=== PATIENT | female | born 1980 | race African-American/Black ===

== ENCOUNTER 2017-02-25 14:17 | Emergency (ER) | payer SELFPAY ==
[~2017-02-25] VITALS: Ht 177.8 cm; Wt 53.0 kg
[2017-02-25 14:19] VITALS: BP 138/83; PULSE 86; RESP 15; TEMP 98.2; O2SAT 99
--- NOTE | 2017-02-25 14:29 | PD ---
Physical Exam Time Seen by Provider: 14:27 Narrative 36 y/o female here with a mildly pruritic rash for 1-2 weeks. She works at a [employer] and is concerned that she has scabies. Vital signs reviewed. Seen at triage desk. Awaiting bed placement. Data Data Last Documented VS Vital Signs Date Time Temp Pulse Resp B/P Pulse Ox O2 Delivery O2 Flow Rate FiO2 02/25/17 14:19 98.2 86 15 138/83 99 MDM Medical Record Reviewed: Yes Supervised Visit with JEANNETTE: No Scripts No Active Prescriptions or Reported Meds Mirza Rodrigues Feb 25, 2017 14:29
[2017-02-25] MEDS ORDERED: PERM5CRE11 TOPICAL (15:49)
--- NOTE | 2017-02-25 15:50 | PD ---
HPI Chief Complaint: Skin Problem Time Seen by Provider: 15:37 Travel History International Travel<30 days: No Contact w/Intl Traveler<30days: No Traveled to known affect area: No History of Present Illness HPI The patient is a 36-year-old Mary Carmen female who presents emergency department after a scabies exposure at a [employer]. The patient states she was exposed the patient has scabies, then developed a rash which is located in the flanks bilaterally. The patient states she was at 3 or 4 small bump several in a row, linear fashion, that were pruritic. These areas have moved around on the flanks bilaterally, she is concerned she has scabies. She denies any involvement of the hands or feet, denies any vomiting of the arms or legs. She does note the rash is somewhat pruritic, denies any vesicular regions. She does have a history scabies with similar symptoms per her report. PFSH Past Medical History Medical History: Denies Significant Hx Tetanus Vaccination: < 5 Years ?: Not LMP: 02/14/17 Past Surgical History Surgical History: No Previous Surgery Social History Alcohol Use: No Tobacco Use: No Substance Use: No Allergies-Medications (Allergen,Severity, Reaction): Uncoded Allergies: CABERGOLINE (Allergy, Severe, Rash, 07/14/15) Reported Meds & Prescriptions Reported Meds & Active Scripts Active Elimite Topical (Permethrin) 5% Cream 1 Applic TOPICAL ONCE Review of Systems General / Constitutional: No: Fever Musculoskeletal: No: Myalgias, Arthralgias Skin: Positive Rash, Positive Itching Hematologic/Lymphatic: No: Easy Bruising Physical Exam Narrative GENERAL: Awake, alert, pleasant 36-year-old female who appears her stated age and is in no acute respiratory distress. SKIN: Focused skin assessment warm/dry. Patient has a few circular lesions on the flanks bilaterally, 2 of them are in a linear fashion, but there are no obvious burrows. Inspection of the hands and feet reveals no burrows. No visible rash to the palms or soles. HEAD: Atraumatic. Normocephalic. EYES: Pupils equal and round. No scleral icterus. No injection or drainage. ENT: No nasal bleeding or discharge. Mucous membranes pink and moist. NECK: Trachea midline. No JVD. MUSCULOSKELETAL: No obvious deformities. No clubbing. No cyanosis. No edema. NEUROLOGICAL: Awake and alert. No obvious cranial nerve deficits. Motor grossly within normal limits. Normal speech. PSYCHIATRIC: Appropriate mood and affect; insight and judgment normal. Data Data Last Documented VS Vital Signs Date Time Temp Pulse Resp B/P Pulse Ox O2 Delivery O2 Flow Rate FiO2 02/25/17 14:19 98.2 86 15 138/83 99 MDM Medical Decision Making Medical Screen Exam Complete: Yes Emergency Medical Condition: Yes Medical Record Reviewed: Yes Differential Diagnosis Differential diagnosis includes scabies, bedbugs, dermatitis, contact dermatitis , shingles. Narrative Course The patient's description of her rash is consistent with scabies versus bed bugs , however, she is concerned about scabies that she had a recent exposure. Therefore, the patient will be treated with Elimite. 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 Diagnosis Primary Impression: Scabies exposure Patient Instructions: General Instructions Additional Instructions: Medications as directed. Follow-up with her primary physician. Elimite for one day. Return to work on after treatment with Elimite. Med/Other Pt SpecificInfo: Prescription(s) given Scripts Permethrin Topical (Elimite Topical)5% Cream1 Applic TOPICAL ONCE #1 TUBE Ref 0 Prov:Elver Starr MD 02/25/17 Disposition: 01 DISCHARGE HOME Condition: Stable Elver Starr MD Feb 25, 2017 15:50
== END 2017-02-25 16:18 | disposition home or self-care (01) ==
LOC: NEPD 14:17
DX: R21 Rash and other nonspecific skin eruption (principal); Z20.7 Contact with and (suspected) exposure to pediculosis, acariasis and other infestations
CPT/HCPCS: 99283

== ENCOUNTER 2017-03-09 09:31 | Emergency (ER) | payer SELFPAY ==
[~2017-03-09] VITALS: Ht 152.4 cm; Wt 51.5 kg
[~2017-03-09 09:31] MED LIST: PERM5CRE11 TOPICAL
[2017-03-09 09:33] VITALS: BP 118/69; PULSE 67; RESP 15; TEMP 98.2; O2SAT 98
[2017-03-09 09:47] VITALS: BP 116/73; PULSE 84; RESP 16; O2SAT 100
[2017-03-09] MEDS ORDERED: METR-1 PO (09:50)
--- NOTE | 2017-03-09 10:12 | PD ---
HPI Chief Complaint: Syncope/Near-Syncope Time Seen by Provider: 09:57 Travel History International Travel<30 days: No Contact w/Intl Traveler<30days: No Traveled to known affect area: No History of Present Illness HPI The patient was seen and examined in the presence of the nurse. This patient complains of feeling lightheaded. He woke up at [address] Duration 6 hours. She feels improved at this point. Resolution was spontaneous with no alleviating factors. Severity was moderate quality occurred. No syncope or headache or chest pain. She denies vertigo. At this point she is not feeling lightheaded. PFSH Past Medical History Medical other: Yes (CHRONIC LOW BACK PAIN) Influenza Vaccination: No ?: Not LMP: 02/23/2017 Past Surgical History Surgical History: No Previous Surgery Social History Alcohol Use: No Tobacco Use: No Substance Use: No Allergies-Medications (Allergen,Severity, Reaction): Uncoded Allergies: CABERGOLINE (Allergy, Severe, Rash, 07/14/15) Reported Meds & Prescriptions Reported Meds & Active Scripts Active Reported Flagyl (Metronidazole) 500 Mg Tab 500 Mg PO BID Review of Systems General / Constitutional: No: Fever Eyes: No: Visual changes HENT: Positive: Lightheadedness, No: Headaches Cardiovascular: No: Chest Pain or Discomfort Respiratory: No: Shortness of Breath Gastrointestinal: No: Abdominal Pain Genitourinary: No: Dysuria Musculoskeletal: No: Pain Skin: No Rash Neurologic: Positive: Dizziness, No: Weakness Psychiatric: No: Depression Endocrine: No: Polydipsia Hematologic/Lymphatic: No: Easy Bruising Physical Exam Narrative GENERAL: Thin well-developed patient in no apparent distress. SKIN: Focused skin assessment reveals no rash and nodules. Skin is Warm and dry. HEAD: Atraumatic. Normocephalic. EYES: Pupils equal and round. No scleral icterus. No injection or drainage. ENT: No nasal bleeding or discharge. Mucous membranes pink and moist. NECK: Trachea midline. No JVD. CARDIOVASCULAR: Regular rate and rhythm. No murmur appreciated. RESPIRATORY: No accessory muscle use. Clear to auscultation. Breath sounds equal bilaterally. GASTROINTESTINAL: Abdomen soft, non-tender, nondistended. Hepatic and splenic margins not palpable. MUSCULOSKELETAL: No obvious deformities. No clubbing. No cyanosis. No edema. NEUROLOGICAL: Awake and alert. No obvious cranial nerve deficits. Motor grossly within normal limits. Normal speech. PSYCHIATRIC: Appropriate mood and affect; insight and judgment normal. 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 [employer] / Telemetry [email or web address] (03/09/17 10:09) Labs Laboratory Tests Test 03/09/17 10:14 White Blood Count 10.0 TH/MM3 Red Blood Count 4.40 MIL/MM3 Hemoglobin 12.6 GM/DL Hematocrit 37.7 % Mean Corpuscular Volume 85.5 FL Mean Corpuscular Hemoglobin 28.6 PG Mean Corpuscular Hemoglobin 33.4 % Concent Red Cell Distribution Width 12.6 % Platelet Count 211 TH/MM3 Mean Platelet Volume 9.4 FL Neutrophils (%) (Auto) 69.1 % Lymphocytes (%) (Auto) 23.6 % Monocytes (%) (Auto) 5.7 % Eosinophils (%) (Auto) 1.4 % Basophils (%) (Auto) 0.2 % Neutrophils # (Auto) 6.9 TH/MM3 Lymphocytes # (Auto) 2.4 TH/MM3 Monocytes # (Auto) 0.6 TH/MM3 Eosinophils # (Auto) 0.1 TH/MM3 Basophils # (Auto) 0.0 TH/MM3 CBC Comment DIFF FINAL Differential Comment Sodium Level 139 MEQ/L Potassium Level 4.4 MEQ/L Chloride Level 104 MEQ/L Carbon Dioxide Level 27.3 MEQ/L Anion Gap 8 MEQ/L Blood Urea Nitrogen 10 MG/DL Creatinine 0.74 MG/DL Estimat Glomerular Filtration 106 ML/MIN Rate Random Glucose 89 MG/DL Calcium Level 9.2 MG/DL MDM Medical Decision Making Medical Screen Exam Complete: Yes Emergency Medical Condition: Yes Medical Record Reviewed: Yes Differential Diagnosis Vertigo, symptomatic anemia, dehydration, ectopic Narrative Course I have reviewed the patient's electronic medical record. Patient was seen here earlier this month with concern of scabies IV placed CBC is normal Metabolic profile is normal Urine is negative I reviewed her EKG which shows sinus rhythm without ectopy Extended cardiac monitoring shows sinus rhythm without ectopy Patient is neurologically intact without objective findings. Vital signs are normal On recheck the patient is doing well. I observed her for almost 3 hours and she is stable without complaint Recommend primary care follow-up Diagnosis Primary Impression: Lightheadedness Additional Impression: Pre-syncope Additional Instructions: The patient was advised to follow up with their physician and return if they worsen. Med/Other Pt SpecificInfo: Other Disposition: 01 DISCHARGE HOME Condition: Stable Ortega Toth MD Mar 09, 2017 10:12
[2017-03-09 10:21] LABS: AUTOMATED NEUTROPHIL # 6.9 TH/MM3 (1.8-7.7); BASOPHIL % 0.2 % (0.0-2.0); EOSINOPHIL # 0.1 TH/MM3 (0-0.4); EOSINOPHIL % 1.4 % (0.0-4.0); HEMATOCRIT 37.7 % (35.0-46.0); HEMO FLAGS DIFF FINAL; LYMPH % 23.6 % (9.0-44.0); LYMPHOCYTE # 2.4 TH/MM3 (1.0-4.8); MEAN CELL VOLUME 85.5 FL (80.0-100.0); MEAN CORPUSCULAR HEMOGLOBIN 28.6 PG (27.0-34.0); MEAN CORPUSCULAR HGB CONC 33.4 % (32.0-36.0); MONO % 5.7 % (0.0-8.0); NEUT % 69.1 % (16.0-70.0); PLATELET COUNT 211 TH/MM3 (150-450); RED CELL DISTRIBUTION WIDTH 12.6 % (11.6-17.2)
[2017-03-09 10:37] LABS: BICARBONATE 27.3 MEQ/L (21.0-32.0); POTASSIUM 4.4 MEQ/L (3.5-5.1)
--- NOTE | 2017-03-09 18:56 | EKG ---
Date Performed: 03/09/2017 Time Performed: 10:20:15 PTAGE: 36 years EKG: Sinus rhythm POSSIBLE RIGHT VENTRICULAR CONDUCTION DELAY BORDERLINE ECG NO PREVIOUS TRACING DOCTOR: John Goldberg Interpretating Date/Time 03/09/2017 18:55:00
== END 2017-03-09 13:26 | disposition home or self-care (01) ==
LOC: NEPC 09:31
DX: R42 Dizziness and giddiness (principal); R55 Syncope and collapse; Z79.899 Other long term (current) drug therapy
CPT/HCPCS: 80048; 84703; 85025; 93005

== ENCOUNTER 2018-06-30 21:00 | Observation (INO) ==
[2018-06-30 21:13] VITALS: TEMP 99
--- NOTE | 2018-07-01 02:28 | XR ---
EXAM DATE: 07/01/2018 2:04 AM EST AGE/SEX: 37 years / Female INDICATIONS: Chest pain. CLINICAL DATA: This is the patient's initial encounter. Patient reports that signs and symptoms have been present for 1 day and indicates a pain score of 5/10. MEDICAL/SURGICAL HISTORY: None. None. COMPARISON: No prior exams available for comparison. FINDINGS: A single AP view of the chest demonstrates the lungs to be symmetrically aerated without evidence of mass, infiltrate or effusion. The cardiomediastinal contours are unremarkable. Osseous structures a re intact. There are multiple overlying electrocardiogram leads. CONCLUSION: No acute cardiopulmonary disease. Electronically signed by: Harry Blancas MD 07/01/2018 2:26 AM EST
[2018-07-01 02:32] LABS: Baso % (Auto) 0.4 % (0.0-2.0); Eos # (Auto) 0.1 th/mm3 (0.0-0.4); Eos % (Auto) 0.8 % (0.0-4.0); Hematocrit 38.7 % (35.0-46.0); Hemoglobin 12.9 gm/dL (11.6-15.3); Lymph # (Auto) 3.2 th/mm3 (1.0-4.8); Lymph % (Auto) 36.2 % (9.0-44.0); Mean Corpuscular HGB Conc 33.4 % (32.0-36.0); Mean Corpuscular Hemoglobin 28.6 pg (27.0-34.0); Mean Corpuscular Volume 85.9 fL (80.0-100.0); Mean Platelet Volume 10.6 fL (7.0-11.0); Mono # (Auto) 0.4 th/mm3 (0.0-0.9); Mono % (Auto) 4.7 % (0.0-8.0); Neut # (Auto) 5.2 th/mm3 (1.8-7.7); Neut % (Auto) 57.9 % (16.0-70.0); Platelet Count 209 th/mm3 (150-450); Red Cell Distribution Width 12.8 % (11.6-17.2); White Blood Count 8.9 th/mm3 (4.0-11.0)
[2018-07-01 02:52] LABS: Alanine Aminotransferase 21 U/L (10-53); Alkaline Phosphatase 45 U/L (45-117); Creatine Kinase 164 U/L (26-192); Total Protein 8.2 g/dL (6.4-8.2)
--- NOTE | 2018-07-01 03:13 | ED ---
HPI General Chief complaint: Chest Pain Stated complaint: Chest Pain Time Seen by Provider: 07/01/18 00:59 History of Present Illness HPI narrative: Patient is a 37 yo female with no significant past medical history presents with chest pain. Patient reports she has had chest pain intermittently for the last few hours. The pain is described as an ache, 7/10 in intensity at its worst, and in the center of her chest without radiation. She notes that the pain is worse when she swallows and with crying. Additionally she had a headache earlier in the evening that was relieved with rest. Patient admits to some recent concern and anxiety regarding and episode of bright red blood in her stool about 5 days ago, and wonders if her chest pain might be related to that. She denies fever, dizziness, shortness of breath , heart palpitations, abdominal pain, nausea, vomiting, diarrhea, and constipation. Related Data Home Medications Medication Instructions Recorded Confirmed No Known Home Medications 07/01/18 07/01/18 Allergies Allergy/AdvReac Type Severity Reaction Status Date / Time CABERGOLINE Allergy Severe Rash Uncoded 06/30/18 21:09 Review of Systems Constitutional Denies chills, Denies excessive sweating, Denies fever(s), Reports headache(s) and Denies weakness Eyes Denies change in vision ENT Denies dizziness, Reports headache(s) and Denies nasal congestion Cardiovascular Reports chest pain, Denies diaphoresis, Denies rapid heart rate, Denies edema, Denies lightheadedness, Denies radiating jaw, neck or arm pain and Denies dyspnea Respiratory Denies dyspnea Gastrointestinal Denies abdominal pain, Reports hematochezia, Denies constipation, Denies diarrhea, Denies loose stools and Denies nausea Genitourinary Denies hematuria, Denies urinary frequency, Denies difficulty voiding, Denies dysuria and Denies urinary urgency Musculoskeletal Denies myalgias Integumentary/Breasts Denies rash Neurologic Reports headache(s) Endocrine Denies polyuria Hematologic/Lymphatic Denies easy bruising PMFSH Medical History Medical History Patient denies medical problems (Acute) Surgical History Surgical History No history of previous surgery (Acute) Social History Social History Second Hand Smoke Exposure: No Smoking Status: Never smoker How Often Do You Have a Drink Containing Alcohol: Never Immunization History Tetanus Immunization: Unsure Exam Const General: cooperative Nutritional Appearance: thin Orientation: alert, awake and oriented x3 HENMT Head: normocephalic and atraumatic Nose: no nasal discharge and no epistaxis Mouth: moist mucous membranes Eyes Sclera: normal sclerae Pupils: PERRL Neck Neck: trachea midline and no JVD Resp Effort & Inspection: no use of accessory muscles Auscultation: clear to auscultation bilaterally Cardio Rate: regular rate Rhythm: regular rhythm Heart Sounds: no murmurs GI Inspection: non-distended Palpation: soft, no hepatosplenomegaly and nontender Skin General: dry skin (warm) Neuro General: alert and awake Cranial Nerves: other Speech: speech normal Motor: no movement abnormalities noted Extrem General: normal to inspection, no clubbing, no cyanosis and no edema Psych Mood: congruent mood Affect: normal affect Judgment: judgment good Course Initial Documented Vital Signs Temperature 99.0 F 06/30/18 21:09 Pulse Rate 72 06/30/18 21:09 Respiratory Rate 16 06/30/18 21:09 Blood Pressure 130/71 06/30/18 21:09 Pulse Oximetry 100 06/30/18 21:09 Last Documented Vital Signs Temperature 99.0 F 06/30/18 21:09 Pulse Rate 68 07/01/18 07:17 Respiratory Rate 14 07/01/18 07:17 Blood Pressure 110/72 07/01/18 07:17 Pulse Oximetry 100 07/01/18 07:17 Medical Decision Making MDM Narrative Medical decision making narrative: I, Dr. Perez, have reviewed the medical student's documentation, and I am in agreement, met with the patient face to face, made the diagnosis, and the medical decision making was done by me. The patient was initially evaluated by []. Please see their complete history and physical. *My assessment and Findings: The patient presents with During the course of the patient's emergency department visit, the patient's history, examination, and differential diagnosis were reviewed with the patient. The patient was placed on a classroom monitor with oximetry and frequent blood pressure monitoring. The patient had [-] IV access obtained and blood work sent for analysis. The patient was initially provided [-]. The patient's diagnostic studies were reviewed and remarkable for Differential Diagnosis Differential Diagnosis: anxiety, GERD, angina, internal hemorrhoids Lab Data Result diagrams: 07/01/18 01:45 07/01/18 01:45 Lab Results 07/01/18 07/01/18 Range/Units 01:45 01:45 WBC 8.9 (4.0-11.0) th/mm3 RBC 4.50 (4.00-5.30) mil/mm3 Hgb 12.9 (11.6-15.3) gm/dL Hct 38.7 (35.0-46.0) % MCV 85.9 (80.0-100.0) fL MCH 28.6 (27.0-34.0) pg MCHC 33.4 (32.0-36.0) % RDW 12.8 (11.6-17.2) % Plt Count 209 (150-450) th/mm3 MPV 10.6 (7.0-11.0) fL Neut % (Auto) 57.9 (16.0-70.0) % Lymph % (Auto) 36.2 (9.0-44.0) % [place] % (Auto) 4.7 (0.0-8.0) % Eos % (Auto) 0.8 (0.0-4.0) % Baso % (Auto) 0.4 (0.0-2.0) % Neut # (Auto) 5.2 (1.8-7.7) th/mm3 Lymph # (Auto) 3.2 (1.0-4.8) th/mm3 [place] # (Auto) 0.4 (0.0-0.9) th/mm3 Eos # (Auto) 0.1 (0.0-0.4) th/mm3 Baso # (Auto) 0.0 (0.0-0.2) th/mm3 WBC Differential . Differential Comment Auto diff final Sodium 139 (136-145) meq/L Potassium 4.3 (3.5-5.1) meq/L Chloride 107 (98-107) meq/L Carbon Dioxide 24.9 (21.0-32.0) meq/L Anion Gap 7 (5-15) meq/L BUN 9 (7-18) mg/dL Creatinine 0.72 (0.50-1.00) mg/dL Estimated GFR Greater than 89 (>89) mL/min Random Glucose 78 (74-106) mg/dL Calcium 8.8 (8.5-10.1) mg/dL Total Bilirubin 0.4 (0.2-1.0) mg/dL AST 24 (15-37) U/L ALT 21 (10-53) U/L Alkaline Phosphatase 45 (45-117) U/L Total Creatine Kinase 164 (26-192) U/L CK-MB (CK-2) Less than 1.0 (0.5-3.6) ng/mL Troponin I Less than 0.02 L (0.02-0.05) ng/mL Total Protein 8.2 (6.4-8.2) g/dL Albumin 3.9 (3.4-5.0) g/dL Lipase 111 (73-393) U/L Imaging Data Radiologist's impression: Chest X-Ray 07/01/18 01:44 CONCLUSION: No acute cardiopulmonary disease. ECG Data Attestation: I personally reviewed and interpreted this ECG as follows: Interpretation: The patient had an EKG done on arrival. The patient's EKG reveals a sinus rhythm heart rate of 64, QRS duration is 80 ms, QTC [address] segment elevation, T waves are inverted in V1. Discharge Plan Physicians Team ED Provider: Danay Perez Primary Care Provider: Primary Care Sonia Perez Attending Provider: Giselle Rosas Status ED Status: Admitted Observation Patient
[2018-07-01 03:20] LABS: Albumin 3.9 g/dL (3.4-5.0); Anion Gap 7 meq/L (5-15); Aspartate Aminotransferase 24 U/L (15-37); Blood Urea Nitrogen 9 mg/dL (7-18); Calcium 8.8 mg/dL (8.5-10.1); Carbon Dioxide 24.9 meq/L (21.0-32.0); Chloride 107 meq/L (98-107); Glomerular Filtration Rate Greater Than 89 mL/min (>89); Glucose,Random 78 mg/dL (74-106); Lipase 111 U/L (73-393); Potassium 4.3 meq/L (3.5-5.1); Sodium 139 meq/L (136-145)
[2018-07-01] MEDS ORDERED: Famotidine PF Inj 20 MG/2 ML Vial IV.PUSH ONE (03:26)
[2018-07-01] MEDS ORDERED: Acetaminophen 500 MG Tablet PO PRN (07:07)
[2018-07-01 07:18] VITALS: BP 110/72; PULSE 68; RESP 14; O2SAT 100
--- NOTE | 2018-07-01 08:26 | P.HPCA ---
History of Present Illness Primary Care Physician: No Primary Care Physician Chief Complaint: Chest pain History of Present Illness: This is a 37-year-old female without history of hypertension, hyperlipidemia, diabetes, and CAD that presents to ED with complaint of sharp left-sided chest discomfort she has been having for months. States it usually occurs when she is crying. Rarely it has happened without crying but then she starts to cry and the discomfort worsens. States the discomfort will last anywhere from seconds to a few minutes. It is rated as a 7 out of 10. Does not radiate. Nothing to improve the symptoms other than stopping crying. She at times short of breath and nauseous with it. Denies diaphoresis. Cannot recall prior cardiac workup. Denies . When asked why she is crying patient states "personal issues." Denies recent illness. Denies fever chills. She stated that about a week ago she noticed some bright red blood on toilet paper after wiping herself after bowel movement. Happened that one episode and has not recurred. Denies abdominal pain. Denies black or tarry stools. Has not has blood in his stool since. Denies use of NSAIDs. Denies hypertension, hyperlipidemia, diabetes, and CAD. Non-smoker. Denies alcohol or illicit drug use. Cannot recall family history of CAD. - Diagnosis (1) Atypical chest pain Review of Systems General: Patient denies fevers, chills, and recent travel. HEENT: Patient denies headache, sore throat, difficulty swallowing. Cardiovascular: Has the chest discomfort as mentioned above. Denies sensation of heart beating rapidly or irregularly. No syncope. Respiratory: Denies shortness of breath or inspirational chest discomfort. Denies coughing wheezing or hemoptysis. GI: Noticed bright red blood on toilet paper after having bowel movement. That was 1 week ago and has not occurred since. Patient denies nausea, vomiting, diarrhea, abdominal pain, bloody stools. Denies black or tarry stools. Musculoskeletal: Patient denies joint pain or edema. Denies calf pain or edema. Neurovascular: Patient denies numbness, tingling, weakness in extremities. Denies headache. Endocrine: Denies polyuria and polydipsia. Hematologic: Denies easy bruising. Skin: Denies rash or itching. PMFSH - History History Provided By: Patient - Medical History Medical History: Medical History (Last Updated 06/30/18 @ 21:12 by Fernanda Miller RN) Patient denies medical problems - Surgical History Surgical History: Surgical History (Last Updated 06/30/18 @ 21:12 by Fernanda Miller RN) No history of previous surgery - Tobacco History Second Hand Smoke Exposure: No Smoking Status: Never smoker - Alcohol History How Often Do You Have a Drink Containing Alcohol: Never - Immunization History Tetanus Immunization: Unsure Medications and Allergies Active Medications: Active Medications Acetaminophen (Tylenol) 500 mg PO Q4H PRN PRN Reason: HEADACHE Sodium Chloride (Ns Flush) 2 ml IV.FLUSH UNSCH PRN PRN Reason: FLUSH AFTER USING IV ACCESS Sodium Chloride (Ns Flush) 2 ml IV.FLUSH BID RENETTA Sodium Chloride (Ns Flush) 2 ml IV.FLUSH PRN PRN PRN Reason: FLUSH AFTER USING IV ACCESS Allergies Allergy/AdvReac Type Severity Reaction Status Date / Time CABERGOLINE Allergy Severe Rash Uncoded 06/30/18 21:09 Home Medications Medication Instructions Recorded Confirmed Type No Known Home Medications 07/01/18 07/01/18 History Exam Vital signs: Vital Signs 06/30/18 21:09 07/01/18 01:09 07/01/18 02:00 Temperature 99.0 F Pulse Rate 72 60 Respiratory Rate 16 15 Blood Pressure 130/71 141/75 H Pulse Oximetry 100 98 98 07/01/18 07:17 07/01/18 08:00 Temperature Pulse Rate 68 Respiratory Rate 14 Blood Pressure 110/72 Pulse Oximetry 100 100 Intake & Output 06/30/18 07/01/18 07/01/18 18:59 06:59 18:59 Weight 54.431 kg Narrative: GENERAL: This is a well-nourished, well-developed patient, in no apparent distress. Patient speaks in clear complete sentences. Patient is pleasant. HEENT: Head is atraumatic and normocephalic. Neck is supple without lymphadenopathy and trachea is midline. No JVD or carotid bruits. CARDIOVASCULAR: Regular rate and rhythm without murmurs, gallops, or rubs. RESPIRATORY: Clear to auscultation. Breath sounds equal bilaterally. No wheezes , rales, or rhonchi. Chest wall is nontender. No use of accessory muscles. GASTROINTESTINAL: Abdomen is nontender, nondistended. Abdomen soft. No obvious pulsatile mass or bruit. No CVA tenderness. Strong femoral pulses bilaterally. Normal bowel sounds in all quadrants. MUSCULOSKELETAL: Patient is moving upper and lower extremities freely. No calf tenderness or edema, no Homans sign. Strong pulses in upper and lower extremities. NEUROLOGICAL: Patient is alert and oriented. Cranial nerves 2-12 are grossly intact. No focal deficits and speech is clear. SKIN: No rash and turgor is normal. Results 07/01/18 01:45 07/01/18 01:45 Cardiac Enzymes 07/01/18 Range/Units 01:45 AST 24 (15-37) U/L CK-MB (CK-2) Less than 1.0 (0.5-3.6) ng/mL Troponin I Less than 0.02 L (0.02-0.05) ng/mL CBC 07/01/18 Range/Units 01:45 WBC 8.9 (4.0-11.0) th/mm3 RBC 4.50 (4.00-5.30) mil/mm3 Hgb 12.9 (11.6-15.3) gm/dL Hct 38.7 (35.0-46.0) % Plt Count 209 (150-450) th/mm3 Neut # (Auto) 5.2 (1.8-7.7) th/mm3 Lymph # (Auto) 3.2 (1.0-4.8) th/mm3 [place] # (Auto) 0.4 (0.0-0.9) th/mm3 Eos # (Auto) 0.1 (0.0-0.4) th/mm3 Baso # (Auto) 0.0 (0.0-0.2) th/mm3 Comprehensive Metabolic Panel 07/01/18 Range/Units 01:45 Sodium 139 (136-145) meq/L Potassium 4.3 (3.5-5.1) meq/L Chloride 107 (98-107) meq/L Carbon Dioxide 24.9 (21.0-32.0) meq/L BUN 9 (7-18) mg/dL Creatinine 0.72 (0.50-1.00) mg/dL Calcium 8.8 (8.5-10.1) mg/dL AST 24 (15-37) U/L ALT 21 (10-53) U/L Alkaline Phosphatase 45 (45-117) U/L Total Protein 8.2 (6.4-8.2) g/dL Albumin 3.9 (3.4-5.0) g/dL Intake and Output 06/30/18 07/01/18 07/01/18 22:59 06:59 14:59 Other: Weight 54.431 kg - Imaging and Cardiology Imaging: Impressions Chest X-Ray 07/01/18 01:44 CONCLUSION: No acute cardiopulmonary disease. EKG interpretations - EKG EKG shows: bradycardia (Initial EKG is sinus bradycardia without significant ST segment depressions or elevations.) Caprini VTE Risk Assessment Caprini VTE Risk Assessment: No/Low Risk (score <= 1) Caprini Risk Assessment Model: Point Value = 1 Point Value = 2 Point Value = 3 Point Value = 5 Age 41-60 Minor surgery BMI > 25 kg/m2 Swollen legs Varicose veins or History of unexplained or recurrent spontaneous Oral contraceptives or hormone replacement Sepsis (< 1 month) Serious lung disease, including pneumonia (< 1 month) Abnormal pulmonary function Acute myocardial infarction Congestive heart failure (< 1 month) History of inflammatory bowel disease Medical patient at bed rest Age 61-74 Arthroscopic surgery Major open surgery (> 45 min) Laparoscopic surgery (> 45 min) Malignancy Confined to bed (> 72 hours) Immobilizing plaster cast Central venous access Age >= 75 History of VTE Family history of VTE Factor V Leiden Prothrombin [id number] Lupus anticoagulant Anticardiolipin antibodies Elevated serum homocysteine Heparin-induced thrombocytopenia Other congenital or acquired thrombophilia Stroke (< 1 month) Elective arthroplasty Hip, pelvis, or leg fracture Acute spinal cord injury (< 1 month) Prophylaxis Regimen: Total Risk Factor Score Risk Level Prophylaxis Regimen 0-1 Low Early ambulation 2 Moderate Order ONE of the following: *Sequential Compression Device (SCD) *Heparin 5000 units SQ BID 3-4 Higher Order ONE of the following medications: *Heparin 5000 units SQ TID *Enoxaparin/Lovenox 40 mg SQ daily (WT < 150 kg, CrCl > 30 mL/min) *Enoxaparin/Lovenox 30 mg SQ daily (WT < 150 kg, CrCl > 10-29 mL/min) *Enoxaparin/Lovenox 30 mg SQ BID (WT < 150 kg, CrCl > 30 mL/min) AND/OR *Sequential Compression Device (SCD) 5 or more Highest Order ONE of the following medications: *Heparin 5000 units SQ TID (Preferred with Epidurals) *Enoxaparin/Lovenox 40 mg SQ daily (WT < 150 kg, CrCl > 30 mL/min) *Enoxaparin/Lovenox 30 mg SQ daily (WT < 150 kg, CrCl > 10-29 mL/min) *Enoxaparin/Lovenox 30 mg SQ BID (WT < 150 kg, CrCl > 30 mL/min) AND *Sequential Compression Device (SCD) Assessment and Plan - Assessment (1) Atypical chest pain Code(s): R07.89 - Other chest pain Status: Acute - Plan * Atypical chest pain: Patient will have serial cardiac enzymes and EKGs for ruling out purposes. She has been seen by Dr. Nba Figueroa of cardiology in the chest pain center. She will undergo a Taye protocol ETT and be discharged home if her stress test is nonischemic with instructions to follow-up with local PCP. She will be given information on the [facility] clinic for follow -up. She also should play close attention to her bowel movements to see if she has any more blood and if noticing blood she should return to ED. She needs to discuss this with PCP. Return to ED for interval issues. Patient is stable at this time. She is agreeable to this plan.
[2018-07-01 08:31] LABS: Creatine Kinase 120 U/L (26-192)
--- NOTE | 2018-07-01 11:36 | ECG ---
Date Performed: 07/01/2018 Time Performed: 07:22:21 PTAGE: 37 years EKG: SINUS BRADYCARDIA POSSIBLE RIGHT VENTRICULAR CONDUCTION DELAY BORDERLINE ECG WARNING: DATA QUALITY MAY AFFECT INTERPRETATION PREVIOUS TRACING : 06/30/2018 21.26 DOCTOR: Nam Olmos Interpretating Date/Time 07/01/2018 11:34:57
--- NOTE | 2018-07-01 15:29 | ECG ---
Date Performed: 06/30/2018 Time Performed: 21:26:33 PTAGE: 37 years EKG: Sinus rhythm POSSIBLE RIGHT VENTRICULAR CONDUCTION DELAY BORDERLINE ECG NO PREVIOUS TRACING DOCTOR: Nba Figueroa Interpretating Date/Time 07/01/2018 15:27:37
--- NOTE | 2018-07-01 15:33 | TR ---
Date Performed: 07/01/2018 Time Performed: 09:49:44 DOCTOR: Nba Figueroa DRUG LIST: CLINICAL HISTORY: REASON FOR TEST: REASON FOR ENDING: OBSERVATION: CONCLUSION: JUNIOR PROTOCOL. NO CP. TEST STOPPED AFTER EXCEEDING GOAL HR SECONDARY TO SOB AND LEG FATIGUE.Maximum UD=175 % Max HR Achieved=93.0% Maximum YK=659/68 Total Exercise Time=4:00 COMMENTS: Patient exercised using the Junior protocol. No electrocardiographic changes were seen to suggest ischemia. Hemodynamic response to exercise was normal. No significant arrhythmia was prese nt.
== END 2018-07-01 10:56 | disposition home or self-care (01) ==
LOC: NEPC 21:00 → NEDA 21:00 → NEPHCDU 07-01 09:47
PROVIDERS: ADMIT Internal Medicine Interventional Cardiology; ATTEND Internal Medicine Interventional Cardiology